=== PATIENT | female | born 1990 | race African-American/Black ===

== ENCOUNTER 2020-02-10 01:07 | Emergency (ER) | payer OTHER ==
[~2020-02-10] VITALS: Ht 172.7 cm; Wt 112.0 kg
[2020-02-10] MEDS ORDERED: SODIUM CHLORIDE 0.9% 1,000 ML IV ONE ×2 (01:16→02:00)
[2020-02-10 01:35] LABS: BASOPHILS % 0.6 % (0.0-2.0); CHLORIDE 107 mEq/L (98-107); EOSINOPHILS % 0.1 % (0.0-5.0); HEMOGLOBIN. 12.5 g/dL (12.0-16.0); LYMPHOCYTES % 54.6 % (20.0-50.0); MEAN CORPUSCULAR VOLUME 81.9 fL (81.0-99.0); MEAN PLATELET VOLUME 8.6 fl (7.4-10.4); MONOCYTES % 3.3 % (2.0-8.0); NEUTROPHILS % 41.4 % (40.0-76.0); PLATELET 327 x1000/uL (130-400); RED BLOOD CELL COUNT 4.64 mill/uL (4.2-5.4); RED CELL DISTRIBUTION WIDTH 16.9 % (11.6-14.6)
[2020-02-10 01:39] LABS: ETHANOL BLOOD 49 mg/dL
[2020-02-10 01:44] LABS: INR 1.1; PROTHROMBIN TIME 11.7 sec (9.6-11.0)
[2020-02-10 01:45] LABS: HCG SCREEN NEGATIVE
[2020-02-10] MEDS ORDERED: POTASSIUM CHLORIDE 20MEQ TABLET SR PO ONE (02:00)
[2020-02-10] MEDS ORDERED: POTASSIUM CHLORIDE INJ 40 MEQ in DEXT 5% WATER 500 ML IV ONE (02:00)
[2020-02-10] MEDS ORDERED: ONDANSETRON HCL 4MG/2ML INJ IV ONE (02:30)
[2020-02-10 04:26] VITALS: BP 139/75
== END 2020-02-10 04:30 | disposition short-term general hospital (02) ==
LOC: ER 01:07 → CANBEDREQ 05:37
DX: E87.6 Hypokalemia (principal); K90.49 Malabsorption due to intolerance, not elsewhere classified
CPT/HCPCS: 36415; 71045; 80053; 80320; 84703; 85025; 85610; 93005; 96361; 96365; 96375; 99285; J2405; J3480; J7030; J7060; G0480